=== PATIENT | male | born 1995 | race Two or more races ===

== ENCOUNTER 2021-05-26 20:02 | Emergency (ER) | payer OTHER ==
[~2021-05-26] VITALS: Ht 170.2 cm; Wt 100.0 kg
[2021-05-26] MEDS ORDERED: ACETAMINOPHEN 500 MG TABLET PO ONE ×2 (20:45→22:16)
[2021-05-26] MEDS ORDERED: IBUPROFEN 600 MG TABLET. PO ONE ×2 (20:45→22:16)
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
--- NOTE | 2021-05-26 22:10 | RAD ---
PQRS Compliance Statement: One or more of the following individualized dose reduction techniques were utilized for this examinat ion: 1. Automated exposure control 2. Adjustment of the mA and/or kV according to patient size 3. Use of iterative reconstruction technique CT MAXILLOFACIAL WITHOUT CONTRAST 05/26/2021 8:58 PM Indication: Left periorbital swelling COMPARISON: None available. TECHNIQUE: Multiple axial CT images of the maxillofacial structures were obtained without intravenous contrast. Coronal and sagittal reformats are provided. FINDINGS: There is mild left periorbital soft tissue swelling. Globes are spherical and contour. No lens disloc ation. No osseous orbital fracture. There is moderate mucus retention cyst in the left maxillary sinu s. There is near complete opacification the right frontal sinus. Ethmoid air cells and sphenoid sinuses are well aerated. Pterygoid plates are intact. No maxillary si nus fracture. Maxilla and mandible are intact. Visualized cervical spine is intact. Skull base neural foramen are patent. Mastoid air cells are well aerated. Temporomandibular joints are well aligned. V isualized brain parenchyma and posterior fossa appear normal. IMPRESSION: Left periorbital soft tissue swelling without acute maxillofacial fracture. Electronically signed by: Archana Wilks MD (05/26/2021 10:08 PM) [facility]
[2021-05-26 22:26] VITALS: BP 123/80
== END 2021-05-26 22:27 | disposition home or self-care (01) ==
LOC: ER 20:02
DX: S05.12XA Contusion of eyeball and orbital tissues, left eye, initial encounter (principal); Y08.89XA Assault by other specified means, initial encounter; Y93.89 Activity, other specified; Y92.148 Other place in prison as the place of occurrence of the external cause; Y99.8 Other external cause status
CPT/HCPCS: 70486; 99284